=== PATIENT | male | born 1975 | race Caucasian/White ===

== ENCOUNTER 2016-07-15 16:18 | Emergency (ER) | payer OTHER ==
[~2016-07-15] VITALS: Ht 170.2 cm; Wt 70.0 kg
[2016-07-15 16:21] VITALS: BP 135/81; PULSE 115; RESP 18; TEMP 98; O2SAT 95
[2016-07-15] MEDS ORDERED: LORazepam 2 MG/ML VIAL ONE (17:38)
[2016-07-15 17:42] VITALS: PULSE 115; RESP 18; O2SAT 96
--- NOTE | 2016-07-15 17:46 | PD ---
HPI Chief Complaint: Seizure Time Seen by Provider: 17:33 Travel History International Travel<30 days: No Contact w/Intl Traveler<30days: No Traveled to known affect area: No History of Present Illness HPI Patient comes in for evaluation of uncontrolled seizures. Patient states that his neurologist, Dr. Davis, started the patient on Oxtellar XR 5 days ago. Patient reports he has been having seizures since switching his medication. Patient reports he had 5 seizures yesterday. Patient reports he stopped taking the new medication 2 or 3 days ago. Patient denies any pain other than his chronic back pain. Denies any chest pain, shortness breath, fevers, nausea, vomiting, abdominal pain, or numbness or tingling anywhere. PFSH Past Medical History Musculoskeletal: Yes (chronic low back pain) Seizures: Yes Social History Tobacco Use: No Substance Use: No Allergies-Medications (Allergen,Severity, Reaction): Coded Allergies: Corticosteroids (Verified Allergy, Severe, Swelling, 07/15/16) Penicillin (Verified Allergy, Severe, Swelling, 07/15/16) Seroquel (Verified Allergy, Intermediate, Twitching, 07/15/16) Reported Meds & Prescriptions Reported Meds & Active Scripts Active Keppra (Levetiracetam) 500 Mg Tab 500 Mg PO BID Reported Morphine IR (Morphine Sulfate) 30 Mg Tab 30 Mg PO TID PRN Klonopin (Clonazepam) 1 Mg Tab 1 Mg PO HS Review of Systems Except as stated in HPI: all other systems reviewed are Neg Physical Exam Narrative GENERAL: Well-developed, well nourished, in no acute distress, and non-ill appearing. SKIN: Warm and dry. HEAD: Atraumatic. Normocephalic. EYES: Pupils equal and round. EOMI. No scleral icterus. No injection or drainage. ENT: No nasal bleeding or discharge. Mucous membranes pink and moist. NECK: Trachea midline. Supple. No nuclear rigidity. CARDIOVASCULAR: Regular rate and rhythm. No murmur appreciated. RESPIRATORY: No accessory muscle use. No respiratory distress. Clear to auscultation. Breath sounds equal bilaterally. GASTROINTESTINAL: Abdomen soft, non-tender, nondistended. Hepatic and splenic margins not palpable. Normal bowel sounds 4. No pulsatile mass. MUSCULOSKELETAL: No obvious deformities. No clubbing. No cyanosis. No edema. Full range of motion. NEUROLOGICAL: Awake and alert. No obvious cranial nerve deficits. Motor grossly within normal limits. Normal speech. PSYCHIATRIC: Appropriate mood and affect; insight and judgment normal. Data Data Last Documented VS Vital Signs Date Time Temp Pulse Resp B/P Pulse Ox O2 Delivery O2 Flow Rate FiO2 07/16/16 06:36 97.7 80 18 104/50 99 Room Air Orders Complete Blood Count With Diff (07/15/16 17:28) Basic Metabolic Panel (Bmp) (07/15/16 17:28) Carbamazepine (Tegretol) (07/15/16 17:28) Blood Glucose (07/15/16 17:28) Ecg Monitoring (07/15/16 17:28) Iv Access Insert/Monitor (07/15/16 17:28) Oximetry (07/15/16 17:28) Lorazepam Inj (Ativan Inj) (07/15/16 17:38) Creatine Kinase (Cpk) (07/15/16 17:28) Levetiracetam (Keppra) (07/15/16 19:45) Drug Screen, Random Urine (07/15/16 20:06) Alcohol (Ethanol) (07/15/16 20:06) Psych Screen (07/15/16 20:06) Electrocardiogram (07/15/16 17:49) Diet Regular Basic (07/16/16 Breakfast) Diet Regular Basic (07/16/16 Lunch) Labs Laboratory Tests Test 07/15/16 07/15/16 07/15/16 18:00 18:20 20:15 White Blood Count 16.7 TH/MM3 Red Blood Count 4.81 MIL/MM3 Hemoglobin 13.8 GM/DL Hematocrit 41.8 % Mean Corpuscular Volume 86.9 FL Mean Corpuscular Hemoglobin 28.7 PG Mean Corpuscular Hemoglobin 33.1 % Concent Red Cell Distribution Width 15.3 % Platelet Count 162 TH/MM3 Mean Platelet Volume 9.4 FL Neutrophils (%) (Auto) 77.8 % Lymphocytes (%) (Auto) 13.5 % Monocytes (%) (Auto) 7.6 % Eosinophils (%) (Auto) 0.9 % Basophils (%) (Auto) 0.2 % Neutrophils # (Auto) 13.0 TH/MM3 Lymphocytes # (Auto) 2.3 TH/MM3 Monocytes # (Auto) 1.3 TH/MM3 Eosinophils # (Auto) 0.1 TH/MM3 Basophils # (Auto) 0.0 TH/MM3 CBC Comment DIFF FINAL Differential Comment Sodium Level 135 MEQ/L Potassium Level 3.5 MEQ/L Chloride Level 97 MEQ/L Carbon Dioxide Level 23.9 MEQ/L Anion Gap 14 MEQ/L Blood Urea Nitrogen 15 MG/DL Creatinine 1.40 MG/DL Estimat Glomerular Filtration 56 ML/MIN Rate Random Glucose 76 MG/DL Calcium Level 8.5 MG/DL Total Creatine Kinase 143 U/L Carbamazepine (Tegretol) Level LESS THAN 0.5 MCG/ML Urine Opiates Screen POS Urine Barbiturates Screen NEG Urine Amphetamines Screen NEG Urine Benzodiazepines Screen POS Urine Cocaine Screen NEG Urine Cannabinoids Screen NEG Ethyl Alcohol Level LESS THAN 3 MG/DL MDM Medical Decision Making Medical Screen Exam Complete: Yes Emergency Medical Condition: Yes Differential Diagnosis Seizure, pseudoseizure, electrolyte abnormality, rhabdomyolysis, other Narrative Course 1739 patient's father reports patient having a seizure. Patient was reevaluated with Dr. Elkin ko. Patient found to be shaking in bed. Patient was not found to be post ictal and returned almost immediately to baseline. 1954 as patient was being ready to be discharged he told RUBIN Bourne that if he had to go home on new seizure medication that he would slit his wrist so that he could be kept and watched. I spoke with patient regarding this patient states that doesn't think that he will do this, however he will do "whatever it takes" to he has make sure he is able to be watched. Patient cause for the fall or spoke with has concerns over his son's mental stability since having started new seizure medication. Discussed patient with Dr. Hallman, who agrees patient should be Anderson acted until he can be evaluated by a psychiatrist. Patient was placed under Anderson act. Patient was seen and examined. Labs were obtained and reviewed with alcohol and urine drug screen pending currently. Patient medically cleared for further treatment and evaluation by psych. Final disposition per psych. Physician Communication Physician Communication [id number] Davis, who recommended starting the patient back on Keppra as he was reportedly on this in the past and follow-up with him in the office if all his lab work is normal. Diagnosis Primary Impression: Seizure disorder Patient Instructions: General Instructions, Recurrent Seizures in Adults (ED) Additional Instructions: Follow-up with your neurologist, call tomorrow to schedule an appointment. Take all medication as prescribed. Return to the emergency department if symptoms get worse. Med/Other Pt SpecificInfo: Prescription(s) given Scripts Levetiracetam (Keppra)500 Mg [id number] Mg PO BID #60 TAB Ref 0 Prov:Shanelle Granger 07/15/16 Disposition: 01 DISCHARGE HOME Condition: Stable Yousif Posey Jul 15, 2016 17:46
[2016-07-15] MEDS ORDERED: CLON1 PO (18:15)
[2016-07-15] MEDS ORDERED: MSIR30 PO (18:15)
[2016-07-15 18:47] LABS: BASOPHIL % 0.2 % (0.0-2.0); EOSINOPHIL # 0.1 TH/MM3 (0-0.4); EOSINOPHIL % 0.9 % (0.0-4.0); HEMATOCRIT 41.8 % (39.0-51.0); HEMO FLAGS DIFF FINAL; LYMPH % 13.5 % (9.0-44.0); LYMPHOCYTE # 2.3 TH/MM3 (1.0-4.8); MEAN CELL VOLUME 86.9 FL (80.0-100.0); MEAN CORPUSCULAR HEMOGLOBIN 28.7 PG (27.0-34.0); MEAN CORPUSCULAR HGB CONC 33.1 % (32.0-36.0); MONO % 7.6 % (0.0-8.0); NEUT % 77.8 % (16.0-70.0); PLATELET COUNT 162 TH/MM3 (150-450); RED BLOOD COUNT 4.81 MIL/MM3 (4.50-5.90); RED CELL DISTRIBUTION WIDTH 15.3 % (11.6-17.2); WHITE BLOOD COUNT 16.7 TH/MM3 (4.0-11.0)
[2016-07-15 19:11] LABS: ANION GAP 14 MEQ/L (5-15); BICARBONATE 23.9 MEQ/L (21.0-32.0); BLOOD UREA NITROGEN 15 MG/DL (7-18); CHLORIDE 97 MEQ/L (98-107); GLOMERULAR FILTRATION RATE 56 ML/MIN (>89); POTASSIUM 3.5 MEQ/L (3.5-5.1); SODIUM (NA) 135 MEQ/L (136-145)
[2016-07-15 19:14] LABS: CREATINE KINASE 143 U/L (39-308)
[2016-07-15] MEDS ORDERED: LEVE500 PO (19:35)
[2016-07-15] MEDS ORDERED: levETIRAcetam 500 MG TAB PO ONE (19:45)
[2016-07-15 20:37] LABS: AMPHETAMINE, URINE NEG (NEG); BARBITURATES, URINE NEG (NEG); COCAINE, URINE NEG (NEG)
[2016-07-15 22:00] VITALS: BP 95/67; PULSE 91; RESP 18; O2SAT 96
[2016-07-16 02:11] VITALS: BP 122/65; PULSE 75; RESP 18; O2SAT 99
[2016-07-16 06:36] VITALS: BP 104/50; PULSE 80; RESP 18; TEMP 97.7; O2SAT 99
--- NOTE | 2016-07-16 12:33 | PD ---
History of Present Illness Chief Complaint: Seizure Time Seen by Provider: 12:00 Travel History International Travel<30 Days: No Contact w/Intl Traveler<30days: No Known affected area: No Legal Status Legal Status: Involuntary Anderson Act Signed By: JANE HOLGUIN Anderson Act Comment: CERTIFICATE OF PROF. IVIS ROD. EXAMINATION ON 2016 @ 2000 History of Present Illness: History of Present Illness 41 year old male with no psychiatric history who initially presented to ED for evaluation of uncontrolled seizures. It is reported that he was started on a new medication and was experiencing increase in seizures and presented to the ED for " monitoring". After the patient was medically cleared he was being discharged and he made statements indicating that he was planning on harming himself. The ED provider placed him under a BA for his safety and for psychiatric evaluation. The patient was monitored overnight in [facility]. He has presented no behavioral concerns and no suicidality. Record is reviewed and he has had no previous contact with [facility] psychiatric department . Patient is seen in [facility]. Awake, alert and oriented. Speech is clear and logical. There is no indication this patient is experiencing any hallucinations , delusions or paranoia. I cannot elicit any symptom of depression or significant anxiety. He denies any suicidal ideation, intent or plan. He further states that his comments were taken out of context and misinterpreted by staff. He alleges he never stated he was going to harm himself and that all he wanted was to be maintained in the hospital for observation as he is afraid of having more seizures. At this time he is requesting discharge. States " I live with my parents and I would never harm myself or them. I take care of both of them". In terms of psychiatric history he denies any previous history of any psychiatric condition and denies any history of previous suicide attempts. PFSH Past Medical History Anxiety: Yes Hypertension: Yes (NO MEDICATIONS) Musculoskeletal: Yes (chronic low back pain) Seizures: Yes Past Surgical History Appendectomy: Yes (1991) Psychiatric History Psychiatric History Hx Psychiatric Treatment: DENIES any History of Inpatient Treatment: No Guns or firearms in home: No Social History Single male . Lives with his parents. Curerntly unemployed Hx Alcohol Use: Yes (RARELY) Hx Tobacco Use: No Hx Substance Use: No Substance Use Type: Prescription Medications Hx of Substance Use Treatment: No Family Psychiatric History Negative Allergies-Medications (Allergen,Severity, Reaction): Coded Allergies: Corticosteroids (Verified Allergy, Severe, Swelling, 07/15/16) Penicillin (Verified Allergy, Severe, Swelling, 07/15/16) Seroquel (Verified Allergy, Intermediate, Twitching, 07/15/16) Reported Meds & Prescriptions Reported Meds & Active Scripts Active Keppra (Levetiracetam) 500 Mg Tab 500 Mg PO BID Reported Morphine IR (Morphine Sulfate) 30 Mg Tab 30 Mg PO TID PRN Klonopin (Clonazepam) 1 Mg Tab 1 Mg PO HS Review of Systems Except as stated in HPI: all other systems reviewed are Neg Psychiatric: COMPLAINS OF: Anxiety, DENIES: Confusion, Mood changes, Depression, Hallucinations, Agitation, Suicidal Ideation, Homicidal Ideation, Delusions Exam Alert: Yes [place]: Person (ox4) Mood: Anxious Affect: Euthymic Speech: Clear, Logical Eye Contact: Normal Memory Intact: Comment (no impairment) Delusions: No Suicidal: Ideation (denies any) Homicidal: Ideation (denies any) Insight/Judgement fair. fair [facility] Medical Decision Making Medical Record Reviewed: Yes Assessment/Plan 41 year old male with no previous psychiatric history under a BA after he stated he would do anything he needed to do in order to remain in the hospital for monitoring and observation. patient is worried over his seizure disorder and wanted to be monitored in ED as well as wanted to have an EEG. At this time this patient does not meet BA criteria and is not deemed to be an imminent risk to self or others. He denies any intent of wanting to harm self or any other person. He is requesting discharge at this time. Orders Complete Blood Count With Diff (07/15/16 17:28) Basic Metabolic Panel (Bmp) (07/15/16 17:28) Carbamazepine (Tegretol) (07/15/16 17:28) Blood Glucose (07/15/16 17:28) Ecg Monitoring (07/15/16 17:28) Iv Access Insert/Monitor (07/15/16 17:28) Oximetry (07/15/16 17:28) Lorazepam Inj (Ativan Inj) (07/15/16 17:38) Creatine Kinase (Cpk) (07/15/16 17:28) Levetiracetam (Keppra) (07/15/16 19:45) Drug Screen, Random Urine (07/15/16 20:06) Alcohol (Ethanol) (07/15/16 20:06) Psych Screen (07/15/16 20:06) Electrocardiogram (07/15/16 17:49) Diet Regular Basic (07/16/16 Breakfast) Diet Regular Basic (07/16/16 Lunch) Results Vital Signs Date Time Temp Pulse Resp B/P Pulse Ox O2 Delivery O2 Flow Rate FiO2 07/16/16 06:36 97.7 80 18 104/50 99 Room Air 07/16/16 02:11 75 18 122/65 99 Room Air 07/15/16 22:00 91 18 95/67 96 Room Air 07/15/16 17:42 115 18 96 Room Air 07/15/16 17:42 116 18 97 Room Air 07/15/16 16:21 98.0 115 18 135/81 95 Laboratory Tests Test 07/15/16 07/15/16 07/15/16 18:00 18:20 20:15 White Blood Count 16.7 Red Blood Count 4.81 Hemoglobin 13.8 Hematocrit 41.8 Mean Corpuscular Volume 86.9 Mean Corpuscular Hemoglobin 28.7 Mean Corpuscular Hemoglobin 33.1 Concent Red Cell Distribution Width 15.3 Platelet Count 162 Mean Platelet Volume 9.4 Neutrophils (%) (Auto) 77.8 Lymphocytes (%) (Auto) 13.5 Monocytes (%) (Auto) 7.6 Eosinophils (%) (Auto) 0.9 Basophils (%) (Auto) 0.2 Neutrophils # (Auto) 13.0 Lymphocytes # (Auto) 2.3 Monocytes # (Auto) 1.3 Eosinophils # (Auto) 0.1 Basophils # (Auto) 0.0 CBC Comment DIFF FINAL Differential Comment Sodium Level 135 Potassium Level 3.5 Chloride Level 97 Carbon Dioxide Level 23.9 Anion Gap 14 Blood Urea Nitrogen 15 Creatinine 1.40 Estimat Glomerular Filtration 56 Rate Random Glucose 76 Calcium Level 8.5 Total Creatine Kinase 143 Carbamazepine (Tegretol) Level LESS THAN 0.5 Urine Opiates Screen POS Urine Barbiturates Screen NEG Urine Amphetamines Screen NEG Urine Benzodiazepines Screen POS Urine Cocaine Screen NEG Urine Cannabinoids Screen NEG Ethyl Alcohol Level LESS THAN 3 Diagnosis Primary Impression: Seizure disorder Additional Impression: Adjustment disorder Psychiatrically Cleared: Yes Departure Forms: Tests/Procedures Patient Instructions: General Instructions, Recurrent Seizures in Adults (ED) Additional Instructions: Follow-up with your neurologist, call tomorrow to schedule an appointment. Take all medication as prescribed. Return to the emergency department if symptoms get worse. Med/ Other Pt Specific Info: No Change to Meds Prescriptions Levetiracetam (Keppra)500 Mg Hpy161 Mg PO BID #60 TAB Ref 0 Prov:Shanelle Granger DO 07/15/16 Disposition: 01 DISCHARGE HOME Condition: Stable Problem Qualifiers Additional Impression: Adjustment disorder Qualified Code: F43.22 - Adjustment disorder with anxious mood Maria Ines Marc Jul 16, 2016 12:33
--- NOTE | 2016-07-16 13:33 | EKG ---
Date Performed: 07/15/2016 Time Performed: 17:49:24 PTAGE: 41 years EKG: SINUS TACHYCARDIA POSSIBLE RIGHT VENTRICULAR CONDUCTION DELAY ABNORMAL RHYTHM ECG NO PREVIOUS TRACING DOCTOR: Meri Dietz Interpretating Date/Time 07/16/2016 13:30:08
== END 2016-07-16 12:29 | disposition home or self-care (01) ==
LOC: NEPE 16:18 → NEPJ 07-16 12:29
DX: G40.909 Epilepsy, unspecified, not intractable, without status epilepticus (principal); G89.29 Other chronic pain; M54.5 Low back pain
CPT/HCPCS: 80048; 80156; 80307; 80320; 82550; 85025; 93005; 99284; J2060